=== PATIENT | male | born 2000 | race Caucasian/White ===

== ENCOUNTER 2020-09-18 17:13 | Emergency (ER) | payer OTHER ==
[~2020-09-18] VITALS: Ht 177.8 cm; Wt 100.0 kg
[2020-09-18 17:15] VITALS: BP 123/73
[2020-09-18] MEDS ORDERED: NEOMY/BACITR/POLYMYXIN OINT PACKET. TP ONE (17:30)
[2020-09-18] MEDS ORDERED: SULF1TAB24 PO (18:14)
[2020-09-18] MEDS ORDERED: CEPH500C PO (18:14)
--- NOTE | 2020-09-18 18:16 | PHYS DOC ---
Past Medical History Past Medical History: Other Additional Past Medical Histor: EZCEMA Past Surgical History: Other Additional Past Surgical Histo: ORAL,SCAPHOID ORIF,BILAT EAR TUBES Smoking Status: Never Smoker Alcohol Use: Occasionally General Adult EDM: Chief Complaint: LACERATION/AVULSION HPI: HPI: 20 yo male who denies any significant past medical history presents the ED with complaints of cuts on his right dominant hand that he sustained while carrying an mini refrigerator. Patient states he accidentally lost control of the refrigerator and cut his right thumb and hand on the edge of the fridge around 5pm. States he almost passed out immediately after when he saw blood-his dad caught him/no head injury. Has an aunt with a history of Marfan syndrome (blood tested negative, clinically diagnosed). Patient reports he has a history of a "staph infection" that required 2 rounds of antibiotics. Denies any blunt injury to his right hand. No decreased range of motion to his right hand. Vaccines up-to-date including his tetanus. Review of Systems: Review of Systems: Constitutional: Denies fever or chills. [] Eyes: Denies change in visual acuity. [] HENT: Denies nasal congestion or sore throat. [] Respiratory: Denies cough or shortness of breath. [] Cardiovascular: Denies chest pain or edema. [] GI: Denies abdominal pain, nausea, vomiting, bloody stools or diarrhea. [] : Denies dysuria. [] Musculoskeletal: Denies back pain or joint pain. [] Integument: Denies rash. [] Neurologic: Denies headache, focal weakness or sensory changes. [] Endocrine: Denies polyuria or polydipsia. [] Lymphatic: Denies swollen glands. [] Psychiatric: Denies depression or anxiety. [] Heart Score: Risk Factors: Risk Factors: DM, Current or recent (<one month) smoker, HTN, HLP, family history of CAD, obesity. Risk Scores: Score 0 - 3: 2.5% MACE over next 6 weeks - Discharge Home Score 4 - 6: 20.3% MACE over next 6 weeks - Admit for Clinical Observation Score 7 - 10: 72.7% MACE over next 6 weeks - Early Invasive Strategies Current Medications: Current Medications Medications (Trade) Dose Ordered Sig/Dianna Start Time Stop Time Status Last Admin Dose Admin Neomycin/ Polymyxin/ Bacitracin (Triple Antibiotic Ointment) 1 pkt 1X ONCE 09/18/20 17:30 09/18/20 17:31 DC 09/18/20 17:37 1 PKT Allergies: Allergies: Allergies Coded Allergies Type Severity Reaction Last Updated Verified Milk Containing Products Allergy Unknown UNKNOWN 09/18/20 Yes Uncoded Allergies Type Severity Reaction Last Updated Verified CREAM FOR SKIN CONDITION, STARTS WITH AN L Allergy Unknown UNKNOWN 09/18/20 Physical Exam: PE: Constitutional: Well developed, well nourished, no acute distress, non-toxic appearance. HENT: Normocephalic, atraumatic, Eyes: EOMI, conjunctiva normal, no discharge. Neck: Normal range of motion, supple, Cardiovascular: S1/2 present, regular rhythm Lungs & Thorax: Speaking in full sentences, bilateral equal chest rise, no tachypnea or increased work of breathing Abdomen: soft, no tenderness, Skin: Warm, dry, no erythema, no rash. [] Back: No tenderness, no CVA tenderness. [] Extremities: No tenderness, no cyanosis, no edema Neurologic: Alert and oriented X 3, normal motor function, normal sensory function, no focal deficits noted. [] Psychologic: Affect normal, judgement normal, mood normal. [] Current Patient Data: Vital Signs: Vital Signs Date Time Temp Pulse Resp B/P (MAP) Pulse Ox O2 Delivery O2 Flow Rate FiO2 09/18/20 17:15 97.6 64 17 123/73 (90) 100 Room Air 97.6 EKG: EKG: sinus rhytm at 53 bpm, normal intervals, NAD, no JOSELYN/STD, no biphasic Twaves, no LVH, no dagger Q waves, no epsilon wave, right axis deviation or concern for right heart strain Radiology/Procedures: Radiology/Procedures: [] Course & Med Decision Making: Course & Med Decision Making Pertinent Labs and Imaging studies reviewed. (See chart for details) Will discharge home with strict ED return precautions were given for rash, purulent drainage, severe pain, syncope, chest pain, dyspnea, decreased range of motion or neurologic deficits.. Encouraged urgent outpatient follow-up with PMD. Life-threatening processes were considered but are low suspicion at this time, given history, physical exam and ED workup. Pt was educated on all prescription medications and adverse effects. All patient's questions were answered and pt was stable at time of discharge. Life/limb-threatening differential includes but is not limited to, trauma (fracture, dislocation, laceration, compartment syndrome, tendon or ligament injury), neurovascular injury or deficit, infection (osteomyelitis, abscess, cellulitis, septic arthritis, necrotizing fasciitis), deep vein thrombosis, mildred l/cardiac/liver disease, medication adverse effect, lymphedema/anasarca, vascular insufficiency or malignancy, I spoken with the patient and her caregivers. I explained the patient's condition, diagnoses and treatment plan based on the information available to me at this time. I have answered the patient and her caregiver's questions and addressed any concerns. The patient and her caregivers have a good understanding of patient's diagnosis, condition and treatment plan as can be expected at this point. Vital signs have been stable. Patient's condition is stable and appropriate for discharge from the emergency department. Patient will pursue further outpatient evaluation with primary care physician or other designated or consulting physician as outlined in the discharge instructions. The patient and/or caregivers are agreeable to this plan of care and follow-up instructions have been explained in detail. The patient and/or caregivers have received these instructions in written form and have expressed an understanding of the discharge instructions. The patient and/or caregivers are aware that any significant change of condition or worsening of symptoms should prompt immediate return to this or the closest emergency department or call to 1. Peña Disclaimer: Peña Disclaimer: This electronic medical record was generated, in whole or in part, using a voice recognition dictation system. Departure Departure Impression: Primary Impression: Laceration of right thumb without complication Additional Impressions: Avulsion of skin of right hand Vasovagal near syncope Disposition: 01 DC HOME SELF CARE/HOMELESS Condition: STABLE Referrals: UNKNOWN PCP NAME (PCP) FOLLOW UP WITH FAMILY MEDICINE: Family Medicine Address: [address] [place], [place] [address]y, [facility] [address] [place] [address] Patient Instructions: Tissue Adhesive Wound Care Additional Instructions: EMERGENCY DEPARTMENT GENERAL DISCHARGE INSTRUCTIONS Thank you for coming to [facility] Emergency Department (ED) today and trusting us with you care. We trust that you had a positive experience in our Emergency Department. If you wish to speak to the department management, you may call the Director at [phone]. YOUR FOLLOW UP INSTRUCTIONS ARE FOLLOWS: 1. Do you have a private Doctor? If you do not have a private doctor, please ask for a resource list of physicians or clinics that may be able to assist you with follow up care. 2. The Emergency Physicain has interpreted your x-rays. The X-Ray specialist will also review them. If there is a change in the findings, you will be notified in 48 hours when at all possible. 3. A lab test or culture has been done, your results will be reviewed and you will be notified if you need a change in treatment. ADDITIONAL INSTRUCTIONS AND INFORMATION: 1. Your care today has been supervised by a physician who is specially trained in emergency care. Many problems require more than one evaluation for a complete diagnosis and treatment. We recommend that you schedule your follow up appointment as recommended to ensure complete treatment of you illness or injury. If you are unable to obtain follow up care and continue to have a problem, or if your condition worsens, we recommend that you return to the ED. 2. We are not able to safely determine your condition over the phone nor are we able to give sound medical advice over the phone. For these safety reasons, if you call for medical advice we will ask you to come to the ED for further evaluation. 3. If you have any questions regarding these discharge instructions please call the ED at [phone]. SAFETY INFORMATION: In the interest of safety, wellness, and injury prevention; we encourage you to wear your sealbelt, if you smoke; quite smoking, and we encourage family to use a pr otective helmet for bicycling and other sporting events that present an increased risk for head injury. IF YOUR SYMPTOMS WORSEN OR NEW SYMPTOMS DEVELOP, OR YOU HAVE CONCERNS ABOUT YOUR CONDITION; OR IF YOUR CONDITION WORSENS WHILE YOU ARE WAITING FOR YOUR FOLLOW UP APPOINTMENT; EITHER CONTACT YOUR PRIMARY CARE DOCTOR, THE PHYSICIAN WHOSE NAME AND NUMBER YOU WERE GIVEN, OR RETURN TO THE ED IMMEDIATELY. Scripts Cephalexin (CEPHALEXIN) 500 Mg Capsule 2 CAP PO BID for 10 Days, #40 CAP Prov: NICK BEST DO 09/18/20 Sulfamethoxazole/Trimethoprim (BACTRIM DS TABLET) 1 Each Tablet 1 TAB PO BID for infection for 10 Days, #20 TAB Prov: NICK BEST DO 09/18/20 NICK BEST DO Sep 18, 2020 18:16
--- NOTE | 2020-09-18 20:26 | EKG ---
[facility] [address] [place] [address] Test Date: 2020-09-18 Test Time: 18:04:47 Pat Name: REESE SANDOVAL Department: Room: Gender: Hole Puncher Strap: : 2000 Requested By: NICK BEST Order Number: [id number] Reading MD: Ken Rogers Measurements Intervals [place] Rate: 53 P: RI: QRS: 45 QRSD: 92 T: 31 QT: 400 QTc: 377 Interpretive Statements SINUS RHYTHM Electronically Signed On 09-29-2020 14:47:22 COMPUTER SYSTEMS TECHNICIAN by Ken Rogers
== END 2020-09-18 18:28 | disposition home or self-care (01) ==
LOC: ER 17:13
DX: S61.111A Laceration without foreign body of right thumb with damage to nail, initial encounter (principal); R55 Syncope and collapse; Z98.890 Other specified postprocedural states; Z91.018 Allergy to other foods; W26.8XXA Contact with other sharp object(s), not elsewhere classified, initial encounter; Y93.89 Activity, other specified; Y92.89 Other specified places as the place of occurrence of the external cause; Y99.8 Other external cause status
CPT/HCPCS: 12001; 93005; 99283